=== PATIENT | female | born 2000 | race Two or more races ===

== ENCOUNTER 2020-05-13 10:01 | Emergency (ER) | payer OTHER ==
[~2020-05-13] VITALS: Ht 162.6 cm; Wt 64.4 kg
[2020-05-13] MEDS ORDERED: CEFADROXIL1 GM PO ×2 (17:18→17:19)
[2020-05-13] MEDS ORDERED: ZITHROMAX TRI-500 MG PO ×2 (17:18→17:19)
== END 2020-05-13 17:31 | disposition home or self-care (01) ==
LOC: EMR PED 10:01
DX: R11.10 Vomiting, unspecified (principal); R63.0 Anorexia; E86.0 Dehydration; B96.0 Mycoplasma pneumoniae [M. pneumoniae] as the cause of diseases classified elsewhere; Z20.822 Contact with and (suspected) exposure to COVID-19

== ENCOUNTER 2020-09-30 09:19 | Emergency (ER) | payer OTHER ==
[~2020-09-30] VITALS: Ht 160 cm; Wt 65.8 kg
[~2020-09-30 09:19] MED LIST: CEFADROXIL1 GM PO; ZITHROMAX TRI-500 MG PO
== END 2020-09-30 13:12 | disposition home or self-care (01) ==
LOC: EMR PED 09:19
DX: J35.01 Chronic tonsillitis (principal); R49.0 Dysphonia; J31.2 Chronic pharyngitis; Z11.52 Encounter for screening for COVID-19

== ENCOUNTER 2021-04-09 13:12 | Emergency (ER) | payer OTHER ==
[~2021-04-09] VITALS: Ht 162.6 cm; Wt 72.6 kg
== END 2021-04-09 16:32 | disposition home or self-care (01) ==
LOC: EMR PED 13:12 → ER 13:15 → EMR PED 16:32
DX: U07.1 COVID-19 (principal); B34.9 Viral infection, unspecified

== ENCOUNTER 2022-08-06 09:02 | Emergency (ER) | payer OTHER ==
[~2022-08-06] VITALS: Ht 162.6 cm; Wt 71.2 kg
== END 2022-08-06 09:53 | disposition home or self-care (01) ==
LOC: ER 09:02
DX: L03.115 Cellulitis of right lower limb (principal)

== ENCOUNTER 2022-08-31 16:59 | Emergency (ER) | payer OTHER ==
[~2022-08-31] VITALS: Ht 162.6 cm; Wt 71.2 kg
== END 2022-08-31 20:35 | disposition home or self-care (01) ==
LOC: ER 16:59
DX: S90.211A Contusion of right great toe with damage to nail, initial encounter (principal); X58.XXXA Exposure to other specified factors, initial encounter; Y93.89 Activity, other specified; Y92.89 Other specified places as the place of occurrence of the external cause; Y99.9 Unspecified external cause status

== ENCOUNTER 2022-11-16 11:54 | Emergency (ER) | payer OTHER ==
[~2022-11-16] VITALS: Ht 167.6 cm; Wt 72.6 kg
== END 2022-11-16 16:56 | disposition home or self-care (01) ==
LOC: ER 11:54
DX: M94.0 Chondrocostal junction syndrome [Tietze] (principal); S69.91XA Unspecified injury of right wrist, hand and finger(s), initial encounter; X58.XXXA Exposure to other specified factors, initial encounter; Y93.9 Activity, unspecified; Y92.9 Unspecified place or not applicable; Y99.9 Unspecified external cause status

== ENCOUNTER 2024-08-26 15:10 | Emergency (ER) | payer OTHER ==
[~2024-08-26] VITALS: Ht 160 cm; Wt 59.9 kg
[2024-08-26 16:54] LABS: BASO % 0.7 % (0.1-1.2); EOS % 1.4 % (0.7-7.0); HEMATOCRIT 33.9 % (34.1-44.9); HEMOGLOBIN 11.8 g/dL (11.2-15.7); LYMPH # 2.27 (1.18-3.74); LYMPH % 31.9 % (19.3-53.1); MEAN CORPUSCULAR HEMOGLOBIN 30.4 pg (25.6-32.2); MONO # 0.55 (0.24-0.82); MONO % 7.7 % (4.7-12.5); NEUT # 4.11 (1.56-6.13); NEUT % 57.7 % (34.0-71.1); PLATELET COUNT 391 K/uL (163-369); RED BLOOD COUNT 3.88 M/uL (3.93-5.22); RED CELL DISTRIBUTION WIDTH 12.4 % (11.6-14.4)
== END 2024-08-26 19:48 | disposition home or self-care (01) ==
LOC: ER 15:20
PROVIDERS: Emergency Medicine
DX: O20.8 Other hemorrhage in early pregnancy (principal); Z3A.01 Less than 8 weeks gestation of pregnancy